=== PATIENT | male | born 1990 | race Caucasian/White ===

== ENCOUNTER 2019-03-05 23:26 | Emergency (ER) | payer SELFPAY ==
[~2019-03-05] VITALS: Ht 170.2 cm; Wt 82.0 kg
[2019-03-06] MEDS ORDERED: FLUORESCEIN SODIUM 1MG/STRIP LEFTEYE ONE (06:15)
[2019-03-06] MEDS ORDERED: KETOROLAC 30MG/ML VIAL IM ONE (06:15)
[2019-03-06] MEDS ORDERED: TETRACAINE 0.5% OPHTH DROPS 4ML LEFTEYE ONE (06:15)
[2019-03-06 07:35] VITALS: BP 118/69
== END 2019-03-06 07:41 | disposition home or self-care (01) ==
LOC: ER 23:26
DX: H53.142 Visual discomfort, left eye (principal)
CPT/HCPCS: 96372; 99283; J1885

== ENCOUNTER 2019-09-10 19:10 | Emergency (ER) | payer SELFPAY ==
[~2019-09-10] VITALS: Ht 170.2 cm; Wt 92.0 kg
[2019-09-10 19:24] VITALS: BP 117/75
[2019-09-10] MEDS ORDERED: TETRACAINE 0.5% OPHTH DROPS 4ML RIGHTEYE ONE (20:00)
[2019-09-10] MEDS ORDERED: FLUORESCEIN SODIUM 1MG/STRIP RIGHTEYE ONE (20:00)
[2019-09-10] MEDS ORDERED: IBUPROFEN 600MG TABLET PO ONE (20:00)
== END 2019-09-10 23:30 | disposition home or self-care (01) ==
LOC: ER 19:10
DX: H16.001 Unspecified corneal ulcer, right eye (principal); I10 Essential (primary) hypertension
CPT/HCPCS: 99283

== ENCOUNTER 2020-03-02 22:47 | Emergency (ER) | payer MEDICAID ==
[~2020-03-02] VITALS: Ht 170.2 cm; Wt 82.0 kg
[2020-03-02 23:23] VITALS: BP 111/67
== END 2020-03-03 01:46 | disposition left against medical advice (07) ==
LOC: ER 22:47
DX: Z53.21 Procedure and treatment not carried out due to patient leaving prior to being seen by health care provider (principal)

== ENCOUNTER 2020-03-03 19:56 | Emergency (ER) | payer MEDICAID ==
[~2020-03-03] VITALS: Ht 170.2 cm; Wt 82.0 kg
[2020-03-03 20:30] VITALS: BP 117/62
[2020-03-03] MEDS ORDERED: CEPHALEXIN 250MG CAPSULE PO ONE (23:00)
== END 2020-03-04 01:24 | disposition home or self-care (01) ==
LOC: ER 19:56
DX: L03.116 Cellulitis of left lower limb (principal)
CPT/HCPCS: 93971; 99284

== ENCOUNTER 2021-08-22 16:25 | Emergency (ER) | payer MEDICAID, OTHER ==
[~2021-08-22] VITALS: Ht 167.6 cm; Wt 75.0 kg
[2021-08-22 16:33] VITALS: BP 137/73
== END 2021-08-22 18:32 | disposition home or self-care (01) ==
LOC: ER 16:25
DX: S40.012A Contusion of left shoulder, initial encounter (principal); R03.0 Elevated blood-pressure reading, without diagnosis of hypertension; V18.0XXA Pedal cycle driver injured in noncollision transport accident in nontraffic accident, initial encounter; Y93.55 Activity, bike riding; Y92.488 Other paved roadways as the place of occurrence of the external cause
CPT/HCPCS: 73030; 99283

== ENCOUNTER 2022-10-23 22:23 | Inpatient (IN) | payer MEDICAID, OTHER ==
[~2022-10-23] VITALS: Ht 177.8 cm; Wt 91.7 kg
[2022-10-23 23:19] LABS: CHLORIDE 106 mEq/L (98-107); INDEX HEMOLYSI 1 (1-3); INDEX ICTERIC 1 (1-4); INDEX LIPEMIC 1 (1-3); POTASSIUM 3.3 mEq/L (3.5-5.1); SODIUM 139 mEq/L (136-145)
[2022-10-23 23:26] LABS: ALANINE AMINOTRANSFERASE 24 IU/L (13-61); ASPARTATE AMINOTRANSFERASE 22 IU/L (15-37); BILIRUBIN TOTAL 0.3 mg/dL (0.1-1.0); CALCIUM 8.3 mg/dL (8.5-10.1); CARBON DIOXIDE 25 mEq/L (21-32); CREATININE 0.9 mg/dL (0.6-1.3); ETHANOL BLOOD 109 mg/dL (-10); GLUCOSE 129 mg/dL (70-105); PROTEIN TOTAL 6.3 g/dL (6.0-8.3); UREA NITROGEN BLOOD 11 mg/dL (7-21)
[2022-10-23 23:27] LABS: BASOPHILS % 0.4 % (0.0-2.0); EOSINOPHILS % 2.3 % (0.0-5.0); HEMATOCRIT. 45.3 % (42.0-52.0); HEMOGLOBIN. 15.4 g/dL (14.0-18.0); LYMPHOCYTES % 40.3 % (20.0-50.0); MEAN CORPUSCULAR HEMOGLOBIN 32.8 pg (28.0-32.0); MEAN CORPUSCULAR HGB CONC 34.1 g/dL (31.0-37.0); MEAN CORPUSCULAR VOLUME 96.1 fL (80.0-94.0); MEAN PLATELET VOLUME 7.7 fl (7.4-10.4); MONOCYTES % 5.4 % (2.0-8.0); NEUTROPHILS % 51.6 % (40.0-76.0); PLATELET 364 x1000/uL (130-400); RED BLOOD CELL COUNT 4.71 mill/uL (4.7-6.1); RED CELL DISTRIBUTION WIDTH 15.1 % (11.6-14.6); WHITE BLOOD COUNT 10.7 x1000/uL (4.5-11.0)
[2022-10-24] MEDS ORDERED: CEFTRIAXONE 1GM PREMIX 50 ML IV ONE (01:00)
[2022-10-24] MEDS ORDERED: AZITHROMYCIN 500MG/250ML 250 ML IV ONE (01:00)
[2022-10-24 01:03] LABS: NT PRO B-TYPE NATRIURETIC PEP 75 pg/mL (5-125); TROPONIN I HIGH SENSITIVITY 12 ng/L (<78)
[2022-10-24 01:15] LABS: LACTIC ACID 4.2 mmol/L (0.4-2.0)
[2022-10-24 01:22] LABS: BG BASE EXCESS -1.6 mmol/L (-2.0-2.0); BG CARBOXYHEMOGLOBIN 0.7 % (0.5-1.5); BG DEOXYHEMOGLOBIN 4.1 % (0.0-5.0); BG FRACTION INSPIRED OXYGEN 100; BG HCO3 ACT 23.4 mmol/L (22.0-26.0); BG METHEMOGLOBIN 0.5 % (0.0-1.5); BG OXYGEN SATURATION 95.9 % (92.0-98.5); BG OXYHEMOGLOBIN 94.7 % (94.0-97.0); BG PCO2 40.6 mmHg (35.0-45.0); BG PH 7.379 (7.350-7.450); BG PO2 79.8 mmHg (75.0-100.0); BG SAMPLE SITE RIGHT RADIAL; BG TOTAL HEMOGLOBIN 16.9 g/dL (12.0-18.0); BG VENT MODE MASK - NRB
[2022-10-24] MEDS ORDERED: LORAZEPAM 2MG/ML CPJ IV PRN (02:15)
[2022-10-24] MEDS ORDERED: POTASSIUM CHLORIDE 20MEQ TABLET SR PO NR (03:30)
[2022-10-24 03:49] LABS: CALCIUM 8.4 mg/dL (8.5-10.1); CHLORIDE 106 mEq/L (98-107); INDEX HEMOLYSI 1 (1-3); INDEX ICTERIC 1 (1-4); INDEX LIPEMIC 1 (1-3); POTASSIUM 3.6 mEq/L (3.5-5.1); SODIUM 138 mEq/L (136-145)
[2022-10-24 03:52] LABS: CARBON DIOXIDE 25 mEq/L (21-32); CREATININE 0.9 mg/dL (0.6-1.3); GLUCOSE 119 mg/dL (70-105); UREA NITROGEN BLOOD 11 mg/dL (7-21)
[2022-10-24 04:26] VITALS: BP 125/63; PULSE 94; RESP 25; TEMP 98
[2022-10-24 04:47] VITALS: BP 125/63; PULSE 96; RESP 23; TEMP 97.3
[2022-10-24 08:00] VITALS: BP 116/68; PULSE 89; RESP 24; TEMP 97.7
[2022-10-24] MEDS ORDERED: ENOXAPARIN 40MG/0.4ML SYR SUBCUT SCH (09:00)
[2022-10-24] MEDS ORDERED: FOLIC ACID 1MG TABLET PO SCH (09:00)
[2022-10-24] MEDS ORDERED: THIAMINE HCL 100MG TABLET PO SCH (09:00)
[2022-10-24 10:02] LABS: INDEX HEMOLYSI 1 (1-3)
[2022-10-24 10:09] LABS: CREATINE KINASE 69 IU/L (39-308); TROPONIN I HIGH SENSITIVITY 8 ng/L (<78)
[2022-10-24 12:00] VITALS: BP 128/77; PULSE 88; RESP 25; TEMP 97.8
[2022-10-24] MEDS ORDERED: IPRATROPIUM/ALBUTEROL 0.5-3(2.5)MG/3ML NEB HHN PRN (12:45)
[2022-10-24 14:06] VITALS: BP 118/69; PULSE 100; TEMP 97.7; O2SAT 96
[2022-10-24] MEDS ORDERED: FAMOTIDINE 20MG TABLET PO SCH (21:00)
[2022-10-25] MEDS ORDERED: CLONIDINE HCL 0.1MG/24HR PATCH TD SCH (09:00)
== END 2022-10-24 14:20 | disposition home or self-care (01) | DRG 812 ==
LOC: ER 22:58 → MICUSO 10-24 01:23 → 5EST 10-24 04:53
PROVIDERS: ADMIT Hospitalist; ATTEND Hospitalist
DX: T40.411A Poisoning by fentanyl or fentanyl analogs, accidental (unintentional), initial encounter (principal); J96.01 Acute respiratory failure with hypoxia; G92.9 Unspecified toxic encephalopathy; E44.1 Mild protein-calorie malnutrition; E87.20 Acidosis, unspecified; J68.0 Bronchitis and pneumonitis due to chemicals, gases, fumes and vapors; F10.130 Alcohol abuse with withdrawal, uncomplicated; E87.6 Hypokalemia; F17.210 Nicotine dependence, cigarettes, uncomplicated; Y90.5 Blood alcohol level of 100-119 mg/100 ml; T59.891A Toxic effect of other specified gases, fumes and vapors, accidental (unintentional), initial encounter; Z68.29 Body mass index [BMI] 29.0-29.9, adult; Y92.89 Other specified places as the place of occurrence of the external cause
CPT/HCPCS: 36415; 36600; 71045; 80048; 80053; 80320; 82375; 82550; 82805; 83605; 83880; 84145; 84484; 85025; 99285; J1650; G0480

== ENCOUNTER 2023-02-05 08:34 | Emergency (ER) | payer MEDICAID ==
[~2023-02-05] VITALS: Ht 180.3 cm; Wt 86.0 kg
[2023-02-05 08:46] VITALS: O2SAT 97
[2023-02-05 09:51] LABS: BASOPHILS % 0.4 % (0.0-2.0); EOSINOPHILS % 2.2 % (0.0-5.0); HEMATOCRIT. 42.5 % (42.0-52.0); HEMOGLOBIN. 14.3 g/dL (14.0-18.0); LYMPHOCYTES % 12.9 % (20.0-50.0); MEAN CORPUSCULAR HGB CONC 33.6 g/dL (31.0-37.0); MEAN CORPUSCULAR VOLUME 95.3 fL (80.0-94.0); MEAN PLATELET VOLUME 7.8 fl (7.4-10.4); MONOCYTES % 9.3 % (2.0-8.0); NEUTROPHILS % 75.2 % (40.0-76.0); PLATELET 340 x1000/uL (130-400); RED BLOOD CELL COUNT 4.46 mill/uL (4.7-6.1); RED CELL DISTRIBUTION WIDTH 14.4 % (11.6-14.6); WHITE BLOOD COUNT 11.8 x1000/uL (4.5-11.0)
[2023-02-05 09:58] LABS: INR 0.9; PROTHROMBIN TIME 9.6 sec (9.6-11.0)
[2023-02-05 10:22] LABS: ALANINE AMINOTRANSFERASE 33 IU/L (10-49); ALBUMIN 4.1 g/dL (3.2-4.8); ASPARTATE AMINOTRANSFERASE 28 IU/L (<34); BILIRUBIN TOTAL 0.5 mg/dL (0.1-1.0); CALCIUM 9.3 mg/dL (8.7-10.4); CARBON DIOXIDE 26 mEq/L (21-32); CHLORIDE 99 mEq/L (98-107); CREATININE 0.8 mg/dL (0.6-1.3); GLUCOSE 123 mg/dL (70-105); POTASSIUM 3.5 mEq/L (3.5-5.1); PROTEIN TOTAL 6.2 g/dL (6.0-8.3); SODIUM 135 mEq/L (136-145); UREA NITROGEN BLOOD 6 mg/dL (9-23)
[2023-02-05] MEDS ORDERED: SULFAMETHOXAZOLE/TRIMETHOPRIM 800/160MG TABLET PO ONE (11:30)
[2023-02-05] MEDS ORDERED: CEFTRIAXONE SODIUM 1 G/VIAL IM ONE (11:30)
[2023-02-05] MEDS ORDERED: CEPH500T MT (14:00)
[2023-02-05] MEDS ORDERED: SULF1TAB48 MT (14:00)
[2023-02-05] MEDS ORDERED: IBUP-2028 MT (14:00)
[2023-02-05] MEDS ORDERED: SULFAMETHOXAZOLE/TRIMETHOPRIM 800/160MG TABLET PO NR (15:00)
[2023-02-05] MEDS ORDERED: CEFTRIAXONE SODIUM 1 G/VIAL IM NR (15:00)
[2023-02-05 15:52] VITALS: BP 124/87; PULSE 88; RESP 20; TEMP 98.4
== END 2023-02-05 15:53 | disposition home or self-care (01) ==
LOC: ER 08:34
DX: L03.211 Cellulitis of face (principal); F11.90 Opioid use, unspecified, uncomplicated
CPT/HCPCS: 80053; 83605; 85025; 85610; 87040; 36415; 96372; 99283; J0696; Z7610 ×2

== ENCOUNTER 2023-11-26 22:36 | Emergency (ER) | payer SELFPAY ==
[~2023-11-26] VITALS: Ht 167.6 cm; Wt 82.0 kg
[~2023-11-26 22:36] MED LIST: CEPH500T MT; IBUP-2028 MT; SULF1TAB48 MT
[2023-11-26 23:10] VITALS: O2SAT 98
[2023-11-27 00:03] LABS: CLARITY URINE CLEAR (CLEAR); COLOR URINE DARK YELLOW (YELLOW); GLUCOSE URINE NEGATIVE (NEGATIVE); KETONES URINE TRACE (NEGATIVE); LEUKOCYTE ESTERASE URINE 2+ (NEGATIVE); NITRITE URINE NEGATIVE (NEGATIVE); OCCULT BLOOD URINE NEGATIVE (NEGATIVE); PH URINE 5.5 (4.5-8.0); PROTEIN URINE TRACE (NEGATIVE); SPECIFIC GRAVITY URINE 1.028 (1.005-1.030)
[2023-11-27] MEDS ORDERED: DOXY100C5 MT (01:53)
[2023-11-27 02:19] VITALS: BP 138/78; PULSE 78; RESP 18; TEMP 36.94740; O2SAT 98
[2023-11-27] MEDS: DOXYCYCLINE HYCLATE 100MG CAPSULE PO ONE (02:19)
[2023-11-27] MEDS: CEFTRIAXONE SODIUM 500MG VIAL IM ONE (02:19)
[2023-11-27 03:25] LABS: WBC URINE 25-50 /hpf (0-2)
[2023-11-27 03:26] LABS: RBC URINE 0-2 /hpf (0-2)
[2023-11-27 03:28] LABS: BACTERIA URINE NONE SEEN; SQUAMOUS EPITHELIAL CELL URINE NONE SEEN /lpf (RARE/1+)
== END 2023-11-27 02:19 | disposition home or self-care (01) ==
LOC: ER 22:36
DX: N48.29 Other inflammatory disorders of penis (principal)
CPT/HCPCS: 81003; 99283; 87086; 96372; J0696; Z7610

== ENCOUNTER 2024-06-12 00:02 | Inpatient (IN) | payer SELFPAY ==
[~2024-06-12] VITALS: Ht 170.2 cm; Wt 97.7 kg
[~2024-06-12 00:02] MED LIST changes: +DOXY100C5 MT
[2024-06-12 00:22] VITALS: O2SAT 97
[2024-06-12 01:06] LABS: BASOPHILS % 0.2 % (0.0-2.0); EOSINOPHILS % 0.4 % (0.0-5.0); HEMATOCRIT. 38.4 % (42.0-52.0); HEMOGLOBIN. 13.1 g/dL (14.0-18.0); LYMPHOCYTES % 8.4 % (20.0-50.0); MEAN CORPUSCULAR HEMOGLOBIN 31.3 pg (28.0-32.0); MEAN CORPUSCULAR HGB CONC 34.2 g/dL (31.0-37.0); MEAN CORPUSCULAR VOLUME 91.6 fL (80.0-94.0); MEAN PLATELET VOLUME 8.1 fl (7.4-10.4); MONOCYTES % 6.3 % (2.0-8.0); NEUTROPHILS % 84.7 % (40.0-76.0); PLATELET 218 x1000/uL (130-400); RED BLOOD CELL COUNT 4.19 mill/uL (4.7-6.1); RED CELL DISTRIBUTION WIDTH 14.5 % (11.6-14.6); WHITE BLOOD COUNT 10.9 x1000/uL (4.5-11.0)
[2024-06-12 01:11] LABS: CHLORIDE 101 mEq/L (98-107); POTASSIUM 3.9 mEq/L (3.5-5.1); SODIUM 131 mEq/L (136-145)
[2024-06-12 01:12] LABS: CARBON DIOXIDE 22 mEq/L (21-32)
[2024-06-12 01:13] LABS: CALCIUM 9.3 mg/dL (8.7-10.4)
[2024-06-12 01:17] LABS: CREATININE 1.1 mg/dL (0.6-1.3); GLUCOSE 128 mg/dL (70-105); UREA NITROGEN BLOOD 15 mg/dL (9-23)
[2024-06-12] MEDS: ACETAMINOPHEN 325MG TABLET PO ONE (02:03)
[2024-06-12] MEDS: SODIUM CHLORIDE 0.9% (SEPSIS BOLUS) IV ONE (02:07)
[2024-06-12 02:08] LABS: CLARITY URINE CLEAR (CLEAR); COLOR URINE YELLOW (YELLOW); GLUCOSE URINE NEGATIVE (NEGATIVE); KETONES URINE NEGATIVE (NEGATIVE); LEUKOCYTE ESTERASE URINE 2+ (NEGATIVE); NITRITE URINE NEGATIVE (NEGATIVE); OCCULT BLOOD URINE NEGATIVE (NEGATIVE); PROTEIN URINE 2+ (NEGATIVE); SPECIFIC GRAVITY URINE 1.027 (1.005-1.030)
[2024-06-12] MEDS: CEFTRIAXONE 1GM/50ML 50 ML IV ONE (02:08)
[2024-06-12] MEDS: CEFTRIAXONE 1GM/50ML 50 ML IV NR (02:13)
[2024-06-12 02:44] LABS: PROTHROMBIN TIME 10.5 sec (9.6-11.0)
[2024-06-12] MEDS ORDERED: ONDANSETRON HCL 4MG/2ML INJ IV PRN (03:00)
[2024-06-12] MEDS ORDERED: HYDROCODONE/ACETAMINOPHEN 5/325MG TABLET PO PRN (03:00)
[2024-06-12] MEDS ORDERED: ACETAMINOPHEN 325MG TABLET PO PRN (03:00)
[2024-06-12] MEDS ORDERED: DOCUSATE SODIUM 100MG CAPSULE PO PRN (03:00)
[2024-06-12] MEDS ORDERED: CLONIDINE 0.1MG TABLET PO PRN (03:00)
[2024-06-12] MEDS ORDERED: GUAIFENESIN 200MG/10ML SUGAR FREE UDC PO PRN (03:00)
[2024-06-12] MEDS ORDERED: LORAZEPAM 2MG/ML INJ IV PRN (03:00)
[2024-06-12] MEDS ORDERED: MAGNESIUM/ALUMINUM HYDROXIDE/SIMETHICONE 30ML UDC PO PRN (03:00)
[2024-06-12] MEDS ORDERED: IPRATROPIUM/ALBUTEROL 0.5-3(2.5)MG/3ML NEB HHN PRN (03:00)
[2024-06-12] MEDS: VANCOMYCIN 1000MG/250ML 250 ML IV SCH (03:23)
[2024-06-12] MEDS ORDERED: KETOROLAC 15MG/ML VIAL IV PRN (03:30)
[2024-06-12 03:47] LABS: IRON 15 ug/dL (65-175)
[2024-06-12 03:50] LABS: ALANINE AMINOTRANSFERASE 32 IU/L (10-49); ALBUMIN 4.1 g/dL (3.2-4.8); ASPARTATE AMINOTRANSFERASE 33 IU/L (<34); BILIRUBIN DIRECT 0.2 mg/dL (<=3.0); BILIRUBIN TOTAL 0.6 mg/dL (0.1-1.0); PROTEIN TOTAL 7.1 g/dL (6.0-8.3); TOTAL IRON BINDING CAPACITY 468 ug/dl (250-425)
[2024-06-12 04:00] VITALS: BP 128/81; PULSE 85; RESP 20; TEMP 38.7; O2SAT 97
[2024-06-12 04:05] VITALS: BP 128/81; PULSE 97; RESP 24; TEMP 38.8
[2024-06-12] MEDS: MULTIVITAMINS,THER W-MINERALS TABLET PO SCH (04:46)
[2024-06-12] MEDS: THIAMINE HCL 100MG TABLET PO SCH (04:46)
[2024-06-12] MEDS: ACETAMINOPHEN 325MG TABLET PO PRN ×2 (04:47→19:06)
[2024-06-12] MEDS: MVI, ADULT NO.1 10 ML, FOLIC ACID 1 MG, THIAMINE HCL 100 MG in SODIUM CHLORIDE 0.9% 1,0... IV SCH (04:47)
[2024-06-12] MEDS: CEFTRIAXONE 2GM/50ML 50 ML IV SCH (05:55)
[2024-06-12] MEDS: SODIUM CHLORIDE 0.9% 1,000 ML IV ONE (05:55)
[2024-06-12 05:59] LABS: RBC URINE 0-2 /hpf (0-2)
[2024-06-12 06:00] LABS: SQUAMOUS EPITHELIAL CELL URINE FEW /lpf (RARE/1+)
[2024-06-12 06:01] LABS: BACTERIA URINE 1+
[2024-06-12 08:00] VITALS: BP 112/63; PULSE 80; RESP 15; TEMP 37.3; O2SAT 95
[2024-06-12 08:16] LABS: *AMPHETAMINES SCREEN URINE PRESUMPTIVE POSITIVE (NEGATIVE); *BARBITURATES SCREEN URINE NEGATIVE (NEGATIVE); *BENZODIAZEPINES SCREEN URINE PRESUMPTIVE POSITIVE (NEGATIVE); *COCAINE SCREEN URINE NEGATIVE (NEGATIVE); CANNABINOID URINE SCREEN NEGATIVE (NEGATIVE); ECSTASY MDMA SCREEN URINE CONF.TEST INDICATED (NEGATIVE); METHADONE URINE SCREEN NEGATIVE (NEGATIVE); OPIATES URINE SCREEN NEGATIVE (NEGATIVE); PHENCYCLIDINE URINE SCREEN NEGATIVE (NEGATIVE)
[2024-06-12] MEDS: FERROUS SULFATE 325MG TABLET PO SCH (08:36)
[2024-06-12] MEDS: FOLIC ACID 1MG TABLET PO SCH (08:37)
[2024-06-12] MEDS: ENOXAPARIN 40MG/0.4ML SYR SUBCUT SCH (08:37)
[2024-06-12] MEDS: MAGNESIUM 2 G PREMIX 50 ML IV NR (10:59)
[2024-06-12 11:13] LABS: CREATINE KINASE 200 IU/L (46-171)
[2024-06-12 12:00] VITALS: BP 116/75; PULSE 81; RESP 19; TEMP 37.2; O2SAT 97
[2024-06-12] MEDS: VANCOMYCIN 1GM/200ML PMX (BAXTER) IV SCH (13:09)
[2024-06-12 13:51] LABS: FERRITIN 239 ng/mL (22-322); FOLIC ACID (FOLATE) SERUM 8.08 ng/mL (>5.38); VITAMIN B12 SERUM 295 pg/mL (211-911)
[2024-06-12 14:04] LABS: HEPATITIS B SURFACE ANTIGEN NEGATIVE (Negative)
[2024-06-12 14:28] LABS: HEPATITIS C AB NON REACTIVE (Neg) (Negative)
[2024-06-12 14:52] LABS: TROPONIN I HIGH SENSITIVITY < 4 ng/L (3.0-53)
[2024-06-12 16:00] VITALS: BP 131/81; PULSE 97; RESP 22; TEMP 37.5; O2SAT 97
[2024-06-12] MEDS ORDERED: NALOXONE HCL 0.4MG/ML VIAL IV PRN (16:00)
[2024-06-12 17:51] LABS: TROPONIN I HIGH SENSITIVITY 4 ng/L (3.0-53)
[2024-06-12 17:54] LABS: CREATINE KINASE 160 IU/L (46-171)
[2024-06-12] MEDS ORDERED: VANCOMYCIN 1GM PMX (XELLIA) 200 ML IV SCH (18:00)
[2024-06-12] MEDS ORDERED: FAMOTIDINE 20MG TABLET PO SCH (21:00)
[2024-06-12] MEDS ORDERED: DOXY100C5 MT (22:45)
[2024-06-13] MEDS ORDERED: CEFTRIAXONE 2GM/50ML 50 ML IV SCH (06:00)
== END 2024-06-12 19:55 | disposition left against medical advice (07) | DRG 720 ==
LOC: ER 00:02 → EDBEDREQ 01:18 → 3WST 02:37 → EDBEDREQTM 02:45 → EDBEDREQ 02:45
PROVIDERS: ADMIT Internal Medicine; ATTEND Internal Medicine
DX: A41.9 Sepsis, unspecified organism (principal); N17.9 Acute kidney failure, unspecified; E87.1 Hypo-osmolality and hyponatremia; D64.9 Anemia, unspecified; R73.9 Hyperglycemia, unspecified; L03.115 Cellulitis of right lower limb; Z53.29 Procedure and treatment not carried out because of patient's decision for other reasons; S80.861A Insect bite (nonvenomous), right lower leg, initial encounter; W57.XXXA Bitten or stung by nonvenomous insect and other nonvenomous arthropods, initial encounter; F13.99 Sedative, hypnotic or anxiolytic use, unspecified with unspecified sedative, hypnotic or anxiolytic-induced disorder; Z87.891 Personal history of nicotine dependence; Z88.6 Allergy status to analgesic agent; Y93.89 Activity, other specified; Y92.89 Other specified places as the place of occurrence of the external cause; Y99.8 Other external cause status
CPT/HCPCS: 36415; 71045; 80048; 80076; 80305; 81003; 82550; 82607; 82728; 82746; 83036; 83540; 83550; 83605; 83735; 84145; 84484; 85025; 86705; 87340; 93005; 99291; A4606; J0696; J1650; J3370; J3411; J3475; J3490; J7030